=== PATIENT | female | born 1945 | race Caucasian/White ===

== ENCOUNTER 2020-07-28 14:13 | Emergency (ER) | payer MEDICARE, BC, SELFPAY ==
[2020-07-28] VITALS (18 sets, daily range): BP systolic 84–111; BP diastolic 46–68; PULSE 64–71; RESP 12–31; TEMP 36.4; O2SAT 91–98
--- NOTE | ~2020-07-28 | CT_ITS ---
EXAMINATION: CT brain wo con EXAM DATE: 07/28/2020 15:28 INDICATION: Fall, head injury . Dizziness. Frontal headache. TECHNIQUE: Spiral CT of the head was performed without contrast. Axial, coronal and sagittal images were reviewed. The dose-length product (DLP) for this examination was 605.33 mGy-cm. The exposure w as tailored according to patient size, and iterative reconstruction (ASIR) was used as additional dos e reduction technique. There is no prior study for comparison. FINDINGS: There is no acute intraparenchymal hemorrhage. No evidence of intraparenchymal brain mass lesion. No evidence of acute infarction. Please note that initial head CT has limited sensitivity for small or acute infarctions. There is mild to moderate periventricular and subcortical hypodensity , nonspecific but probably related to small vessel ischemic disease. There is mild to moderate prom inence of the sulci and ventricles related to cerebral atrophy. There is intracranial carotid arter iosclerosis. There are no extra-axial collections. There is no mass effect or midline shift. Patie nt has had bilateral ocular lens surgery. Right frontal scalp contusion/laceration. The visualized s inuses and mastoid air cells are well aerated. IMPRESSION: 1. No acute intracranial findings. 2. Chronic age related findings. 3. Right frontal scalp contusion/laceration. Reviewed, dictated and finalized at location A.
--- NOTE | 2020-07-28 15:27 | ED.HEATRA ---
HPI - Head Injury General Chief complaint: Head Injury Stated complaint: fall/dizzy/meza Time Seen by Provider: 07/28/20 14:50 Source: patient Mode of arrival: EMS Limitations: no limitations History of Present Illness HPI Narrative: Patient is a 75-year-old female complaining of a mild headache after she fell out of bed . She did say that she has a cut on top of her head.patient was able to ambulate after the fall. Patient denies loss of consciousness. Patient denies any neck pain, chest pain, back pain, abdominal pain or any extremity pain/injury Related Data Allergies Allergy/AdvReac Type Severity Reaction Status Date / Time tramadol Allergy Unknown Itching Verified 07/28/20 14:23 Review of Systems Review of Systems: All systems reviewed & are unremarkable except as noted in HPI and below Constitutional: Constitutional: Denies body ache(s), Denies chills, Denies excessive sweating, Denies fatigue, Denies fever(s), Denies headache(s), Denies lethargy, Denies malaise, Denies weakness and Denies weight loss Eyes: Eyes: Denies blurry vision, Denies change in vision and Denies loss of vision ENT: Denies dizziness, Denies ear discharge, Denies headache(s), Denies lip swelling, Denies epistaxis, Denies nasal congestion, Denies neck pain, Denies throat swelling and Denies tongue swelling Cardiovascular: Cardiovascular: Denies chest pain, Denies chest pain at rest, Denies chest pain with activity, Denies diaphoresis, Denies rapid heart rate, Denies edema, Denies irregular heart rhythm, Denies lightheadedness, Denies palpitations, Denies dyspnea and Denies dyspnea on exertion Respiratory: Respiratory: Denies chest congestion, Denies cough, Denies hemoptysis, Denies dyspnea and Denies dyspnea on exertion Gastrointestinal: Gastrointestinal: Denies abdominal pain, Denies melena, Denies hematochezia, Denies diarrhea, Denies nausea, Denies vomiting and Denies hematemesis Musculoskeletal: Musculoskeletal: Denies abnormal gait, Denies deformity, Denies joint swelling, Denies limited range of motion, Denies neck pain and Denies numbness Neurologic: Denies Abnormal speech present, Denies abnormal gait, Denies confusion, Denies dizziness, Denies focal weakness, Denies loss of vision, Denies numbness, Denies Other visual disturbances, Denies Sensory deficit (Neuro) and Denies weakness Psychiatric: Psychiatric: Denies confusion, Denies depression, Denies auditory hallucinations, Denies homicidal ideation and Denies suicidal ideation Endocrine: Endocrine: Denies cold intolerance, Denies excessive sweating, Denies fatigue, Denies heat intolerance and Denies palpitations Hematologic/Lymphatic: Hematologic/Lymphatic: Denies easy bleeding and Denies easy bruising Allergic/Immunologic: Allergic/Immunologic: Denies lip swelling, Denies throat swelling and Denies tongue swelling [facility] Social History Social History Gender identity (if verbalized by the patient): Female Exam Const: General: cooperative, healthy appearing, comfortable, no acute distress, well developed, alert and awake; No confusion Orientation/consciousness: oriented to person, oriented to place, oriented to time, patient oriented x3 and No confusion Limitations: no limitations HENMT: Head: normal to inspection, normocephalic and atraumatic Ears: hearing grossly normal bilaterally, TM normal on the right and TM normal on the left General nose exam: Normal external nose present, Normal nares present and No nasal discharge present Face and sinus: normal facial exam Mouth: Yes Normal oral and palatal mucosa present, Yes lip normal, Yes tongue normal and Yes oropharynx normal Throat: posterior oropharynx normal, tonsils normal and uvula midline Other: 2 cm superficial laceration right parietal area, healing Eyes: General: appearance normal, both eyes and all related structures Pupils: Equal, round and reactive pupils present EOM: EOMs intact bilaterally Neck: Neck: normal v
[2020-07-28] MEDS: ONDANSETRON HCL ODT 4 MG TABLET PO (15:50)
[2020-07-28 16:09] LABS: Basophils Percent Auto 0.4 % (0.2-1.2); Hematocrit 41.3 % (37.0-47.0); Hemoglobin 13.9 g/dL (12.0-15.0); Immature Granulocyte Absolute 0.02 K/mm3 (0.00-0.031); Immature Granulocyte Percent A 0.4 % (0-0.5); Lymphocytes Absolute Auto 0.99 K/mm3 (0.9-3.2); Lymphocytes Percent Auto 20.4 % (18.3-44.2); Mean Corpuscular HGB Conc 33.7 g/dl (32-36); Mean Corpuscular Hemoglobin 29.5 pg (26-34); Mean Corpuscular Volume 87.7 fl (80-100); Mean Platelet Volume 10.1 fl (7.4-10.4); Monocytes Absolute Auto 0.5 K/mm3 (0.1-0.6); Monocytes Percent Auto 9.9 % (2.6-8.5); Neutrophils Absolute Auto 3.4 K/mm3 (1.3-6.7); Neutrophils Percent Auto 68.9 % (45.5-73.1); Platelet Count Result 158 k/mm3 (150-375); Red Blood Count 4.71 M/mm3 (4.2-5.4); Red Cell Distribution Width 13.9 % (11.5-14.5); White Blood Count 4.9 K/mm3 (4.5-10.0)
[2020-07-28 16:18] LABS: Anion Gap 10 mmol/L (8-16); Blood Urea Nitrogen 18 mg/dL (7-17); Carbon Dioxide 29 mmol/L (22-30); Chloride 95 mmol/L (98-107); Estimated CRCL calculation 40 ml/min; Estimated Glomerular Filt Rate 48; Glucose 127 mg/dL (65-105); Sodium 134 mmol/L (137-145)
== END 2020-07-28 17:06 | disposition home or self-care (01) ==
PROVIDERS: Emergency Provider Emergency Medicine; PCP Internal Medicine
DX: S01.01XA Laceration without foreign body of scalp, initial encounter (principal); S09.90XA Unspecified injury of head, initial encounter; W06.XXXA Fall from bed, initial encounter
CPT/HCPCS: 36415; 70450; 80048; 85025; 99284; A9270

== ENCOUNTER 2020-08-01 16:24 | Outpatient (CLI) | payer MEDICARE, BC, SELFPAY ==
--- NOTE | ~2020-08-01 | CT_ITS ---
EXAMINATION: CT brain wo con DATE: 08/01/2020 17:50 INDICATION: Frequent falls. Head injury. TECHNIQUE: Computed tomography (CT) of the head was performed without intravenous contrast. The dose- length product was 605.33 mGy-cm. The mA was adjusted according to patient size. Iterative reconstruc tion technique was employed. COMPARISON: CT dated 07/28/2020 FINDINGS: No acute intracranial hemorrhage, infarction, mass or mass effect. No ventriculomegaly or m idline shift. Generalized atrophy. There are scattered moderate periventricular and subcortical white matter changes, most likely related to small vessel ischemic disease (microangiopathy). There is int racranial atherosclerosis. Study limited by motion artifact. Midline sagittal images are unremarkable . IMPRESSION: 1. No acute intracranial abnormality. 2: Chronic age-related findings. Reviewed, dictated and finalized at location A.
== END 2020-08-01 16:25 | disposition home or self-care (01) ==
PROVIDERS: PCP Internal Medicine; Visit Provider Internal Medicine
DX: S09.90XA Unspecified injury of head, initial encounter (principal); X58.XXXA Exposure to other specified factors, initial encounter
CPT/HCPCS: 70450

== ENCOUNTER 2022-11-25 19:07 | Emergency (ER) | payer MEDICARE, BC, SELFPAY ==
[2022-11-25] VITALS (37 sets, daily range): BP systolic 135–184; BP diastolic 59–85; PULSE 53–74; RESP 9–22; TEMP 36.3; O2SAT 92–98
--- NOTE | ~2022-11-25 | CT_ITS ---
EXAMINATION: CT abdomen pelvis w con DATE: 11/25/2022 20:43 INDICATION: abd pain TECHNIQUE: Computed tomography (CT) of the abdomen and pelvis was performed with 100 mL Omnipaque-350 intravenous contrast. Automated exposure control and iterative reconstruction technique were employe d. The dose-length product was 1002.05 mGy-cm. COMPARISON: None. FINDINGS: Lower thorax: Senescent changes in the lungs. Dependent scar/atelectasis. Aortic and coronary calcifi cation. Sub-6 mm right middle lobe pulmonary nodule. Liver: Enlarged. Fatty infiltrated. Biliary/Gallbladder: Gallbladder is normal. No bile duct dilation. Pancreas: No mass or duct dilation. Spleen: Normal. Adrenals:No mass. Kidneys: Simple left midpole cyst. No suspicious mass, stone, or hydronephrosis. GI tract: Distal esophageal and antral wall edema. No small or large bowel dilation. Normal appendix. Mesentery/Peritoneum: No ascites, mass, or free air. Retroperitoneum: No mass. Patent aortobifemoral stent graft, with patent stents at the origins of the celiac, superior mesenteric, and bilateral renal arteries. Small focus of contrast enhancement withi n the distal aneurysmal sac at the level of L4, adjacent to the iliac portions of the stent, which ap pears to be associated with an adjacent enhancing lumbar artery, which may be responsible for retrogr romel filling. Pelvis: Pelvic organs are within normal limits. Soft Tissues: Soft tissues and body wall unremarkable. Bones: No acute osseous finding. IMPRESSION: 1. Sub 6 mm right middle lobe pulmonary nodule, likely benign and requires no additional imaging unle ss the patient is at high risk, in which case consider optional CT of the chest at 12 months. 2. Esophagitis/gastritis. 3. Hepatomegaly with steatosis. 4. Findings suggestive of a small type II endoleak, which typically resolve over time and the not req uire treatment, unless there is expansion of the aneurysmal sac. Comparison to outside studies would be helpful, if available. Reviewed, dictated and finalized at location K. AND TRIM WORKER IMPRESSION: 1. Sub 6 mm right middle lobe pulmonary nodule, likely benign and requires no a dditional imaging unless the patient is at high risk, in which case consider op tional CT of the chest at 12 months. 2. Esophagitis/gastritis. 3. Hepatomegaly with steatosis. 4. Findings suggestive of a small type II endoleak, which typically resolve ove r time and the not require treatment, unless there is expansion of the aneurysm al sac. Comparison to outside studies would be helpful, if available.
--- NOTE | ~2022-11-25 | XR_ITS ---
EXAMINATION: XR chest 1V Exam Date/Time: 11/25/2022 19:25 PRODUCT MANAGEMENT INTERN HISTORY: ams Comparison: None available. RESULT: Lines, tubes, and devices: Descending thoracic/abdominal aortic stent. Lungs and pleura: Rightward rotation. Low lung volumes with crowding. Cardiomediastinal silhouette: Stable. Other: No acute osseous or upper abdominal finding. IMPRESSION: No acute cardiopulmonary process. Reviewed, dictated and finalized at location K. UCT MANAGEMENT INTERN
--- NOTE | ~2022-11-25 | CT_ITS ---
EXAMINATION: CT brain wo con DATE: 11/25/2022 19:30 INDICATION: ams . TECHNIQUE: Computed tomography (CT) of the head was performed without intravenous contrast. The mA wa s adjusted according to patient size. Iterative reconstruction technique was employed. The dose-lengt h product was 605.33 mGy-cm. COMPARISON: 08/01/2020. FINDINGS: No acute intracranial hemorrhage or extra-axial fluid collection. No hydrocephalus, mass, or herniation. No acute ischemic infarct. Unremarkable dural venous sinus attenuation. No acute osseous abnormality. Lentiform shaped hyperdense collections in the left and right aspect of the left globe, density of acute hemorrhage, displaces the choroid and vitreous centrally and the le ns anteriorly, decreasing the depth of the anterior chamber. The aerated spaces are clear. Moderate atrophy and chronic white matter change. Atherosclerotic intracranial calcification. 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 Bilateral lens replacements. IMPRESSION: No acute intracranial process. 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 Reviewed, dictated and finalized at location K. E MANAGER IMPRESSION: No acute intracranial process. Hemorrhagic choroidal detachment in the left demetria be, correlate with history of recent orbital trauma.
--- NOTE | 2022-11-25 19:19 | ECG_ITS ---
Measurements Intervals [place] Rate: 65 P: 47 ME: 179 QRS: -5 QRSD: 107 T: 30 QT: 345 QTc: 359 Interpretive Statements SINUS RHYTHM INFERIOR LATERAL ST AND T-WAVE ABNORMALITY, CONSIDER ISCHEMIA. ABNORMAL ECG NO PREVIOUS ECG AVAILABLE FOR COMPARISON Electronically Signed On 11-26-2022 10:07:35 PROJECT SCHEDULER by Len Duran M.D.
--- NOTE | 2022-11-25 20:00 | ED.AMS ---
HPI - Altered Mental Status General Chief Complaint: Altered Mental Status <Skinny Barros DO - Last Filed: 11/25/22 23:28> Stated Complaint: ams <Skinny Barros DO - Last Filed: 11/25/22 23:28> Source: patient, family, EMS and RN notes reviewed <Skinny Barros DO - Last Filed: 11/25/22 23:28> History of Present Illness HPI narrative: Patient presents to emergency department from home via EMS for altered mental status. Per family the patient has been having altered mental status since approximately 8:30 PM last night. States the patient is normally ANO x4 and has been ANO x2 patient also has been having numerous episodes of nausea and vomiting since last night. Per family take her blood sugar at home and was approximately 250 and EMS was called. Patient does have a history of having eye surgery on her left eye approximately November [address] Lou with a lot of vision. The patient subsequently developed a super colloidal hemorrhage and had been seen at [facility] emergency department last night where she had been kept overnight that time her pressures have been noted to be up into the 50s they had contacted [facility] today and the patient been discharged and followed up in the office and I do have office notes here present the family brought that is able to review that showed in the office today the patient had eye pressures in the left eye of 15. At that time it was felt according to the family that no further surgical intervention could be performed secondary to the patient being on Plavix and risk of worsening symptoms the patient was sent home with eyedrops and instructed to follow-up. The patient was given Zofran 4 mg by EMS in route <Skinny Barros DO - Last Filed: 11/25/22 23:28> Related Data Allergies/Adverse Reactions: Allergies Allergy/AdvReac Type Severity Reaction Status Date / Time tramadol Allergy Unknown Itching Verified 11/25/22 20:02 <Skinny Barros, - Last Filed: 11/25/22 23:28> Review of Systems Review of Systems: Gen.: Denies fevers or chills Eyes: See HPI ENT: Denies congestion Respiratory: Denies shortness of breath or cough CV: Denies chest pain or palpitations GI: Denies abdominal pain reports nausea and vomiting Musculoskeletal: Denies back pain or muscle pain Neuro: Reports altered mental status Skin: Denies rash Except as documented, all other systems reviewed and negative <Skinny Barros DO - Last Filed: 11/25/22 23:28> [facility] Past Medical History Medical History: Medical History (Updated 11/25/22 @ 23:28 by Skinny Barros DO) Hypercholesterolemia <Skinny Barros DO - Last Filed: 11/25/22 23:28> Social History Social History: Social History (Updated 11/25/22 @ 22:06 by Skinny Barros DO) Smoking status: Never smoker Gender identity (if verbalized by the patient): Female <Skinny Barros DO - Last Filed: 11/25/22 23:28> Exam Narrative: APPEARANCE: No acute distress, nontoxic, resting in bed EYES: Right pupil is normal appearance, the left eye has a hyphema present with a dilated pupil with diffuse erythema of the conjunctiva HEENT: Normocephalic, atraumatic, OMM RESPIRATORY: No respiratory distress Clear to auscultation bilaterally with no rhonchi wheezing or rales. CARDIOVASCULAR: Regular rate and rhythm without murmurs rubs or gallops. ABDOMINAL: Soft, nontender, nondistended, no rebound or guarding MUSCULOSKELETAl: Moves all extremities. No clubbing, cyanosis or edema. NEURO: Awake and alert x 2. Following commands, speech normal, no focal deficits SKIN:: Warm, dry. No rashes lesions or abrasions PSYCHIATRIC: Normal affect/mood, <Skinny Barros DO - Last Filed: 11/25/22 23:28> Course Course Emergency Course: [place] measurements: 62 on the Left 18 on the Right Called and discussed with [facility] ophthalmology as well as ER Dr. Coronel at this time
[2022-11-25] MEDS: SODIUM CHLORIDE 0.9% IV 1,000 ML 999 ML IV CONT (20:04)
[2022-11-25 20:05] LABS: Basophils Percent Auto 0.3 % (0.2-1.2); Hematocrit 40.4 % (37.0-47.0); Hemoglobin 12.7 g/dL (12.0-15.0); Immature Granulocyte Absolute 0.04 K/mm3 (0.00-0.031); Immature Granulocyte Percent A 0.4 % (0-0.5); Lymphocytes Absolute Auto 0.91 K/mm3 (0.9-3.2); Lymphocytes Percent Auto 9.1 % (18.3-44.2); Mean Corpuscular HGB Conc 31.4 g/dl (32-36); Mean Corpuscular Hemoglobin 26.6 pg (26-34); Mean Corpuscular Volume 84.5 fl (80-100); Mean Platelet Volume 9.6 fl (7.4-10.4); Monocytes Absolute Auto 0.7 K/mm3 (0.1-0.6); Monocytes Percent Auto 6.5 % (2.6-8.5); Neutrophils Absolute Auto 8.3 K/mm3 (1.3-6.7); Neutrophils Percent Auto 83.7 % (45.5-73.1); Platelet Count Result 273 k/mm3 (150-375); Red Blood Count 4.78 M/mm3 (4.2-5.4); Red Cell Distribution Width 15.5 % (11.5-14.5)
[2022-11-25 20:15] LABS: Partial Thromboplastin Time 23.9 SECONDS (22.3-36.8); Prothrombin Time 13.1 Seconds (11.1-14.7)
[2022-11-25 20:20] LABS: Alanine Aminotransferase 24 U/L (6-35); Albumin Level 5.2 g/dL (3.5-5.1); Alkaline Phosphatase 112 U/L (38-126); Anion Gap 10 mmol/L (8-16); Aspartate Amino Transferase 29 U/L (14-36); Bilirubin,Total 0.7 mg/dL (0.2-1.3); Blood Urea Nitrogen 15 mg/dL (7-17); Calcium 10.2 mg/dL (8.4-10.2); Carbon Dioxide 25 mmol/L (22-30); Chloride 100 mmol/L (98-107); Estimated CRCL calculation 36 ml/min; Estimated Glomerular Filt Rate 48; Glucose 175 mg/dL (65-110); Lactic Acid Reflex 1.2 mmol/L (0.7-2.0); Potassium 3.5 mmol/L (3.4-5.0); Sodium 135 mmol/L (137-145)
[2022-11-25 20:36] LABS: Influenza A QL RT-PCR Negative (Negative); Influenza B QL RT-PCR Negative (Negative); SARS-CoV-2 RNA PCR Negative
[2022-11-25] MEDS: ONDANSETRON INJ 4 MG/2 ML VIAL IV PUSH (21:32)
[2022-11-25 22:02] LABS: Appearance Urine Clear (Clear); Bilirubin Urine Negative (Negative); Blood Urine Negative (Negative); Color Urine Yellow (Yellow); Glucose Urine UA Negative (Negative); Ketones Urine Negative (Negative); Leukocyte Esterase Ur Negative LEU/UL (Negative); Nitrate Urine Negative (Negative); Protein Urine 2+ mg/dL (Negative); pH Urine 8.5 (5.0-9.0)
[2022-11-25 22:08] LABS: Mucus Urine Rare /lpf; Squamous Epithelial Cell Urine Rare /hpf (Few); WBC Urine 0-3 /hpf
[2022-11-25 22:19] LABS: Add Urine Microscopic? YES
[2022-11-26] VITALS: PULSE 66; RESP 16
[2022-11-26 00:01] VITALS: BP 170/71; PULSE 67; RESP 18; O2SAT 97
--- NOTE | 2022-11-26 00:06 | PC.NURSE ---
[facility] here for ED to ED transfer at this time. Family aware and will follow.
== END 2022-11-26 00:30 | disposition short-term general hospital (02) ==
PROVIDERS: Emergency Provider Emergency Medicine; PCP Internal Medicine
DX: R41.82 Altered mental status, unspecified (principal); I60.9 Nontraumatic subarachnoid hemorrhage, unspecified; R11.2 Nausea with vomiting, unspecified; Z20.822 Contact with and (suspected) exposure to COVID-19
CPT/HCPCS: 36415; 51701; 70450; 71045; 74177; 80053; 81001; 83605; 85025; 85610; 85730; 87636; 93005; 96361; 96374; 99291; J2405; J7030; Q9967